=== PATIENT | male | born 1940 | race Caucasian/White ===

== ENCOUNTER 2019-01-29 13:50 | Inpatient (IN) ==
[2019-01-29 16:05] LABS: Basophils # 0.1 10*3/uL (0.0-0.2); Basophils % 0.6 % (0.0-0.8); Eosinophils # 0.3 10*3/uL (0.0-0.87); Eosinophils % 2.7 % (0.00-10.9); Hematocrit 32.1 VOL% (42.0-52.0); Hemoglobin 9.4 GM/DL (14.0-18.0); Immature Granulocytes % 0.5 %; Immature Granulocytes Absolute 0.05 #; Lymphocytes # 0.9 10*3/uL (1.4-4.0); Lymphocytes % 8.8 % (21.2-54.2); Mean Corpuscular HGB Conc 29.3 GM/DL (32-36); Mean Corpuscular Volume 110.3 FL (87-102); Mean Platelet Volume 10.7 FL (9.6-12.0); Monocytes % 10.5 % (1.7-12.7); Neutrophils % 76.9 % (38.7-73.9); Platelet Count 276 T/CUMM (130-400); Red Blood Count 2.91 MC/CUMM (3.8-5.5); Red Cell Distribution Width 15.8 % (9.3-17.3); White Blood Count 10.3 T/CUMM (4-12)
[2019-01-29 16:15] LABS: PT Patient Result 10.8 SECS (9.6-12.2); Partial Thromboplastin Time 26.1 SECS (20.8-36.0)
[2019-01-29 16:34] LABS: Alanine Aminotransferase 25 U/L (16-61); Albumin 3.4 G/DL (3.4-5.0); Alkaline Phosphatase 97 U/L (45-117); Aspartate Amino Transferase 16 U/L (0-37); Bilirubin,Total < 0.39 MG/DL (0.2-1.0); Blood Urea Nitrogen 43 MG/DL (7-18); Calcium 8.7 MG/DL (8.5-10.1); Estimated Glom Filtration Rate 37 ML/MIN; Glucose 103 MG/DL (74-106); Osmolality,Calculated 293.1 MOS/KG (273-304); Total Protein 6.2 G/DL (6.4-8.3)
[2019-01-29] MEDS ORDERED: FUROSEMIDE 100 MG/10 ML VIAL IV STA (17:21)
[2019-01-29 18:49] LABS: Apearance,Urine CLEAR (Clear); Bilirubin,Urine Negative (Negative); Blood, Urine Negative (Negative); Glucose,Urine (UA) Negative (Negative); Ketones,Urine Negative (Negative); Nitrite,Urine Negative (Negative); Protein,Urine Negative; RBC,Urine <1 /HPF (0-4); Urine Color Straw (Yellow); Urine Specific Gravity 1.008 (1.001-1.035); Urine Urobilinogen < 2.0 EU/DL (0.2-1.0); WBC,Urine <1 /HPF (0-6)
[2019-01-29] MEDS ORDERED: NITROGLYCERIN SL 0.4 MG TABLET SL PRN (23:51)
[2019-01-29] MEDS ORDERED: ACETAMINOPHEN 325 MG TABLET PO PRN (23:51)
[2019-01-29] MEDS ORDERED: ONDANSETRON 4 MG/2 ML VIAL IV PRN (23:51)
[2019-01-30] MEDS: METOPROLOL SUCCINATE XL 50 MG TABLET PO SCH ×2 (00:54→21:33)
[2019-01-30 07:05] LABS: Basophils # 0.1 10*3/uL (0.0-0.2); Basophils % 0.6 % (0.0-0.8); Eosinophils # 0.4 10*3/uL (0.0-0.87); Eosinophils % 3.3 % (0.00-10.9); Hematocrit 31.9 VOL% (42.0-52.0); Hemoglobin 9.4 GM/DL (14.0-18.0); Immature Granulocytes % 0.6 %; Immature Granulocytes Absolute 0.06 #; Lymphocytes # 1.1 10*3/uL (1.4-4.0); Lymphocytes % 10.2 % (21.2-54.2); Mean Corpuscular HGB Conc 29.5 GM/DL (32-36); Mean Corpuscular Volume 110.8 FL (87-102); Mean Platelet Volume 10.7 FL (9.6-12.0); Monocytes % 10.8 % (1.7-12.7); Neutrophils % 74.5 % (38.7-73.9); Platelet Count 267 T/CUMM (130-400); Red Blood Count 2.88 MC/CUMM (3.8-5.5); Red Cell Distribution Width 15.9 % (9.3-17.3); White Blood Count 10.9 T/CUMM (4-12)
[2019-01-30 07:32] LABS: Anisocytosis 2+; Calcium 8.8 MG/DL (8.5-10.1); Osmolality,Calculated 293.3 MOS/KG (273-304); Platelet Estimate Normal
[2019-01-30 07:33] LABS: Macrocytosis 1+; Tear Drop Cells Few
[2019-01-30 07:51] LABS: Folate > 24.0 NG/ML (5.4-24.0); Vitamin B12 273 PG/ML (211-911)
[2019-01-30] MEDS ORDERED: FUROSEMIDE 100 MG/10 ML VIAL IV SCH (08:00)
[2019-01-30] MEDS ORDERED: [UNRECOGNIZED DRUG - OTHER] PO SCH (09:00)
[2019-01-30] MEDS: ENOXAPARIN 40 MG/0.4 ML SYRINGE SUBCUT SCH (10:11)
[2019-01-30] MEDS: FERROUS SULFATE 325 MG TABLET PO SCH (10:11)
[2019-01-30] MEDS: CLOPIDOGREL 75 MG TABLET PO SCH (10:12)
[2019-01-30] MEDS: ATORVASTATIN 10 MG TABLET PO SCH (10:12)
[2019-01-30] MEDS: ALLOPURINOL 300 MG TABLET PO SCH (10:12)
[2019-01-30] MEDS: ISOSORBIDE DINITRATE 10 MG TABLET PO SCH ×3 (10:12→21:33)
[2019-01-30] MEDS: ASPIRIN EC 81 MG TABLET PO SCH (10:12)
[2019-01-30] MEDS: FUROSEMIDE 40 MG/4 ML VIAL IV SCH ×2 (10:13→16:27)
[2019-01-30] MEDS: PANTOPRAZOLE 40 MG TABLET PO SCH (16:26)
[2019-01-31 05:58] LABS: Basophils # 0.1 10*3/uL (0.0-0.2); Basophils % 0.6 % (0.0-0.8); Eosinophils # 0.3 10*3/uL (0.0-0.87); Eosinophils % 3.1 % (0.00-10.9); Hematocrit 30.5 VOL% (42.0-52.0); Immature Granulocytes % 0.8 %; Immature Granulocytes Absolute 0.09 #; Lymphocytes # 0.9 10*3/uL (1.4-4.0); Lymphocytes % 8.2 % (21.2-54.2); Mean Corpuscular HGB Conc 29.5 GM/DL (32-36); Mean Corpuscular Volume 109.7 FL (87-102); Mean Platelet Volume 10.4 FL (9.6-12.0); Monocytes % 12.1 % (1.7-12.7); Neutrophils % 75.2 % (38.7-73.9); Platelet Count 248 T/CUMM (130-400); Red Blood Count 2.78 MC/CUMM (3.8-5.5); Red Cell Distribution Width 15.8 % (9.3-17.3); White Blood Count 10.7 T/CUMM (4-12)
[2019-01-31 06:32] LABS: Calcium 8.3 MG/DL (8.5-10.1)
[2019-01-31] MEDS ORDERED: POTASSIUM CHLORIDE 10 MEQ TABLET PO SCH (09:00)
[2019-01-31] MEDS: CYANOCOBALAMIN 1000 MCG/1 ML VIAL IM SCH (09:25)
[2019-01-31] MEDS: ISOSORBIDE DINITRATE 10 MG TABLET PO SCH ×3 (09:25→20:59)
[2019-01-31] MEDS: FUROSEMIDE 40 MG/4 ML VIAL IV SCH ×2 (09:25→16:43)
[2019-01-31] MEDS: ENOXAPARIN 40 MG/0.4 ML SYRINGE SUBCUT SCH (09:26)
[2019-01-31] MEDS: ASPIRIN EC 81 MG TABLET PO SCH (09:26)
[2019-01-31] MEDS: ALLOPURINOL 300 MG TABLET PO SCH (09:26)
[2019-01-31] MEDS: CLOPIDOGREL 75 MG TABLET PO SCH (09:26)
[2019-01-31] MEDS: ATORVASTATIN 10 MG TABLET PO SCH (09:27)
[2019-01-31] MEDS: PANTOPRAZOLE 40 MG TABLET PO SCH (09:27)
[2019-01-31] MEDS: FERROUS SULFATE 325 MG TABLET PO SCH (09:27)
[2019-01-31] MEDS ORDERED: metOLazone 5 MG TABLET PO SCH (11:30)
[2019-01-31] MEDS ORDERED: MAGNESIUM SULF RIDER 4 GM in PREMIX 1 EACH IV PRN (13:58)
[2019-01-31] MEDS ORDERED: MAGNESIUM SULF RIDER 2 GM in PREMIX 1 EACH IV PRN (13:58)
[2019-01-31] MEDS: METOPROLOL SUCCINATE XL 50 MG TABLET PO SCH (20:59)
[2019-01-31] MEDS: ZALEPLON 5 MG CAPSULE PO PRN (21:42)
[2019-02-01] MEDS: ASPIRIN EC 81 MG TABLET PO SCH (10:33)
[2019-02-01] MEDS: CLOPIDOGREL 75 MG TABLET PO SCH (10:34)
[2019-02-01] MEDS: ALLOPURINOL 300 MG TABLET PO SCH (10:34)
[2019-02-01] MEDS: ATORVASTATIN 10 MG TABLET PO SCH (10:34)
[2019-02-01] MEDS: ISOSORBIDE DINITRATE 10 MG TABLET PO SCH ×3 (10:34→21:11)
[2019-02-01] MEDS: PANTOPRAZOLE 40 MG TABLET PO SCH (10:34)
[2019-02-01] MEDS: FERROUS SULFATE 325 MG TABLET PO SCH (10:35)
[2019-02-01] MEDS: CYANOCOBALAMIN 1000 MCG/1 ML VIAL IM SCH (10:35)
[2019-02-01] MEDS: ENOXAPARIN 40 MG/0.4 ML SYRINGE SUBCUT SCH (10:36)
[2019-02-01] MEDS: FUROSEMIDE 40 MG/4 ML VIAL IV SCH (10:58)
[2019-02-01] MEDS ORDERED: FUROSEMIDE 40 MG/4 ML VIAL IV SCH (16:00)
[2019-02-01] MEDS ORDERED: FUROSEMIDE 80 MG TABLET PO SCH (16:00)
[2019-02-01] MEDS: ZALEPLON 5 MG CAPSULE PO PRN (21:11)
[2019-02-01] MEDS: METOPROLOL SUCCINATE XL 50 MG TABLET PO SCH (21:11)
[2019-02-02 05:32] LABS: Calcium 9.1 MG/DL (8.5-10.1); Osmolality,Calculated 290.7 MOS/KG (273-304)
[2019-02-02] MEDS ORDERED: metOLazone 5 MG TABLET PO ONE (07:12)
[2019-02-02] MEDS: POTASSIUM CHLORIDE 20 MEQ TABLET PO SCH (09:13)
[2019-02-02] MEDS: FERROUS SULFATE 325 MG TABLET PO SCH (09:13)
[2019-02-02] MEDS: ALLOPURINOL 300 MG TABLET PO SCH (09:13)
[2019-02-02] MEDS: ISOSORBIDE DINITRATE 10 MG TABLET PO SCH ×3 (09:13→21:34)
[2019-02-02] MEDS: ASPIRIN EC 81 MG TABLET PO SCH (09:13)
[2019-02-02] MEDS: ATORVASTATIN 10 MG TABLET PO SCH (09:14)
[2019-02-02] MEDS: CLOPIDOGREL 75 MG TABLET PO SCH (09:14)
[2019-02-02] MEDS: PANTOPRAZOLE 40 MG TABLET PO SCH (09:14)
[2019-02-02] MEDS: ENOXAPARIN 40 MG/0.4 ML SYRINGE SUBCUT SCH (09:14)
[2019-02-02] MEDS: FUROSEMIDE 40 MG/4 ML VIAL IV SCH ×2 (09:14→16:44)
[2019-02-02] MEDS: CYANOCOBALAMIN 1000 MCG/1 ML VIAL IM SCH (09:15)
[2019-02-02] MEDS: METOPROLOL SUCCINATE XL 50 MG TABLET PO SCH (21:34)
[2019-02-02] MEDS: ZALEPLON 5 MG CAPSULE PO PRN (21:34)
[2019-02-03 06:17] LABS: Calcium 8.8 MG/DL (8.5-10.1)
[2019-02-03] MEDS ORDERED: metOLazone 5 MG TABLET PO SCH (08:30)
[2019-02-03] MEDS: FUROSEMIDE 40 MG/4 ML VIAL IV SCH ×2 (09:43→16:14)
[2019-02-03] MEDS: ASPIRIN EC 81 MG TABLET PO SCH (09:45)
[2019-02-03] MEDS: ALLOPURINOL 300 MG TABLET PO SCH (09:45)
[2019-02-03] MEDS: ISOSORBIDE DINITRATE 10 MG TABLET PO SCH ×3 (09:45→21:43)
[2019-02-03] MEDS: POTASSIUM CHLORIDE 20 MEQ TABLET PO SCH (09:46)
[2019-02-03] MEDS: PANTOPRAZOLE 40 MG TABLET PO SCH (09:46)
[2019-02-03] MEDS: FERROUS SULFATE 325 MG TABLET PO SCH (09:46)
[2019-02-03] MEDS: ATORVASTATIN 10 MG TABLET PO SCH (09:46)
[2019-02-03] MEDS: CLOPIDOGREL 75 MG TABLET PO SCH (09:46)
[2019-02-03] MEDS: ENOXAPARIN 40 MG/0.4 ML SYRINGE SUBCUT SCH (09:47)
[2019-02-03] MEDS: CYANOCOBALAMIN 1000 MCG/1 ML VIAL IM SCH (09:49)
[2019-02-03] MEDS: METOPROLOL SUCCINATE XL 50 MG TABLET PO SCH (21:43)
[2019-02-03] MEDS: ZALEPLON 5 MG CAPSULE PO PRN (22:39)
[2019-02-04 06:06] LABS: Basophils # 0.1 10*3/uL (0.0-0.2); Basophils % 0.6 % (0.0-0.8); Eosinophils # 0.4 10*3/uL (0.0-0.87); Eosinophils % 3.8 % (0.00-10.9); Hemoglobin 9.4 GM/DL (14.0-18.0); Immature Granulocytes % 0.5 %; Immature Granulocytes Absolute 0.06 #; Lymphocytes # 1.1 10*3/uL (1.4-4.0); Lymphocytes % 9.8 % (21.2-54.2); Mean Corpuscular HGB Conc 30.3 GM/DL (32-36); Mean Corpuscular Volume 106.5 FL (87-102); Mean Platelet Volume 10.9 FL (9.6-12.0); Monocytes % 11.6 % (1.7-12.7); Neutrophils % 73.7 % (38.7-73.9); Platelet Count 271 T/CUMM (130-400); Red Blood Count 2.91 MC/CUMM (3.8-5.5); Red Cell Distribution Width 15.6 % (9.3-17.3); White Blood Count 10.9 T/CUMM (4-12)
[2019-02-04 06:53] LABS: Calcium 8.9 MG/DL (8.5-10.1); Osmolality,Calculated 290.1 MOS/KG (273-304)
[2019-02-04] MEDS: ASPIRIN EC 81 MG TABLET PO SCH (09:07)
[2019-02-04] MEDS: ALLOPURINOL 300 MG TABLET PO SCH (09:07)
[2019-02-04] MEDS: FERROUS SULFATE 325 MG TABLET PO SCH (09:07)
[2019-02-04] MEDS: ATORVASTATIN 10 MG TABLET PO SCH (09:08)
[2019-02-04] MEDS: PANTOPRAZOLE 40 MG TABLET PO SCH (09:08)
[2019-02-04] MEDS: ISOSORBIDE DINITRATE 10 MG TABLET PO SCH (09:08)
[2019-02-04] MEDS: POTASSIUM CHLORIDE 20 MEQ TABLET PO SCH ×3 (09:08→11:43)
[2019-02-04] MEDS: CLOPIDOGREL 75 MG TABLET PO SCH (09:08)
[2019-02-04] MEDS: FUROSEMIDE 40 MG/4 ML VIAL IV SCH (09:09)
[2019-02-04] MEDS: ENOXAPARIN 40 MG/0.4 ML SYRINGE SUBCUT SCH (09:10)
[2019-02-04] MEDS: CYANOCOBALAMIN 1000 MCG/1 ML VIAL IM SCH (09:15)
[2019-02-04 11:24] VITALS: BP 113/64
== END 2019-02-04 13:08 | disposition home health service (06) | DRG 291 ==
LOC: N.ED 13:50 → SUATTDRO 21:14 → N.EDINP 21:14 → N.5E 21:25
PROVIDERS: ADMIT Internal Medicine; ATTEND Internal Medicine Geriatric Medicine

== ENCOUNTER 2019-02-07 12:55 | Inpatient (IN) ==
[2019-02-07 13:56] LABS: Basophils # 0.1 10*3/uL (0.0-0.2); Basophils % 0.5 % (0.0-0.8); Eosinophils # 0.3 10*3/uL (0.0-0.87); Eosinophils % 2.2 % (0.00-10.9); Immature Granulocytes % 0.6 %; Immature Granulocytes Absolute 0.08 #; Lymphocytes # 0.8 10*3/uL (1.4-4.0); Lymphocytes % 6.5 % (21.2-54.2); Mean Corpuscular Volume 109.2 FL (87-102); Mean Platelet Volume 10.4 FL (9.6-12.0); Monocytes % 10.5 % (1.7-12.7); Neutrophils % 79.7 % (38.7-73.9); Platelet Count 261 T/CUMM (130-400); Red Blood Count 2.84 MC/CUMM (3.8-5.5); Red Cell Distribution Width 15.5 % (9.3-17.3); White Blood Count 12.9 T/CUMM (4-12)
[2019-02-07 14:22] LABS: Bilirubin,Total 0.4 MG/DL (0.2-1.0); Calcium 8.4 MG/DL (8.5-10.1); Osmolality,Calculated 293.8 MOS/KG (273-304); Total Protein 6.5 G/DL (6.4-8.3)
[2019-02-07] MEDS ORDERED: FUROSEMIDE 100 MG/10 ML VIAL IV STA (15:08)
[2019-02-07] MEDS ORDERED: MAGNESIUM SULF RIDER 2 GM in PREMIX 1 EACH IV PRN (15:47)
[2019-02-07] MEDS ORDERED: ACETAMINOPHEN 325 MG TABLET PO PRN (15:47)
[2019-02-07] MEDS ORDERED: MAGNESIUM SULF RIDER 4 GM in PREMIX 1 EACH IV PRN (15:47)
[2019-02-07] MEDS ORDERED: ONDANSETRON 4 MG/2 ML VIAL IV PRN (15:47)
[2019-02-07] MEDS ORDERED: ENOXAPARIN 30 MG/0.3 ML SYRINGE SUBCUT SCH (16:00)
[2019-02-07] MEDS ORDERED: BISACODYL 5 MG TABLET PO STA (16:06)
[2019-02-07 17:09] LABS: Apearance,Urine CLEAR (Clear); Bilirubin,Urine Negative (Negative); Blood, Urine Negative (Negative); Glucose,Urine (UA) Negative (Negative); Ketones,Urine Negative (Negative); Mucus,Urine Occasional /LPF (Occasional); Nitrite,Urine Negative (Negative); Protein,Urine Negative; RBC,Urine <1 /HPF (0-4); Sperm,Urine Occasional /HPF (Negative); Urine Color Yellow (Yellow); Urine Urobilinogen < 2.0 EU/DL (0.2-1.0); WBC,Urine <1 /HPF (0-6)
[2019-02-07] MEDS: SPIRONOLACTONE 25 MG TABLET PO SCH (18:00)
[2019-02-07] MEDS: ASPIRIN CHEW 81 MG TABLET PO SCH (18:00)
[2019-02-07] MEDS: metOLazone 2.5 MG TABLET PO SCH (18:00)
[2019-02-07] MEDS: FUROSEMIDE 40 MG/4 ML VIAL IV SCH (18:01)
[2019-02-07] MEDS: PANTOPRAZOLE 40 MG TABLET PO SCH (18:01)
[2019-02-07] MEDS: METOPROLOL SUCCINATE XL 50 MG TABLET PO SCH (20:19)
[2019-02-08] MEDS ORDERED: DEXAMETHASONE 4 MG/1 ML VIAL IM ONE (01:26)
[2019-02-08 05:28] LABS: Calcium 8.3 MG/DL (8.5-10.1); Osmolality,Calculated 294.8 MOS/KG (273-304)
[2019-02-08 05:36] LABS: Basophils # 0.1 10*3/uL (0.0-0.2); Basophils % 0.5 % (0.0-0.8); Eosinophils # 0.2 10*3/uL (0.0-0.87); Eosinophils % 1.1 % (0.00-10.9); Hematocrit 31.7 VOL% (42.0-52.0); Hemoglobin 9.4 GM/DL (14.0-18.0); Immature Granulocytes % 0.8 %; Immature Granulocytes Absolute 0.11 #; Lymphocytes # 0.6 10*3/uL (1.4-4.0); Lymphocytes % 4.7 % (21.2-54.2); Mean Corpuscular HGB Conc 29.7 GM/DL (32-36); Mean Corpuscular Volume 108.2 FL (87-102); Mean Platelet Volume 10.8 FL (9.6-12.0); Neutrophils % 87.9 % (38.7-73.9); Platelet Count 299 T/CUMM (130-400); Red Blood Count 2.93 MC/CUMM (3.8-5.5); Red Cell Distribution Width 15.6 % (9.3-17.3); White Blood Count 13.8 T/CUMM (4-12)
[2019-02-08 06:09] LABS: Band Neutrophils 2 % (0-10); Eosinophils 2 % (0-10); Hypochromasia 1+; Lymphocytes 5 % (20-55); Macrocytosis 1+; Segmented Neutrophils 90 % (50-85); Total Cells Counted 100
[2019-02-08 06:10] LABS: Ovalocytes Slight
[2019-02-08] MEDS: metOLazone 2.5 MG TABLET PO SCH (08:59)
[2019-02-08] MEDS: ATORVASTATIN 10 MG TABLET PO SCH (08:59)
[2019-02-08] MEDS: ASPIRIN CHEW 81 MG TABLET PO SCH (08:59)
[2019-02-08] MEDS: CLOPIDOGREL 75 MG TABLET PO SCH (08:59)
[2019-02-08] MEDS: SPIRONOLACTONE 25 MG TABLET PO SCH (08:59)
[2019-02-08] MEDS: FUROSEMIDE 40 MG/4 ML VIAL IV SCH ×2 (09:00→15:10)
[2019-02-08] MEDS ORDERED: NON-FORMULARY MEDICATION (Omeprazole 40 MG) PO SCH (09:00)
[2019-02-08] MEDS: PANTOPRAZOLE 40 MG TABLET PO SCH (09:00)
[2019-02-08] MEDS: CEFEPIME 1,000 MG in SODIUM CHLORIDE 0.9% 100 ML IV SCH ×2 (09:32→20:02)
[2019-02-08] MEDS: FEBUXOSTAT 80 MG TABLET PO SCH (12:55)
[2019-02-08] MEDS: METOPROLOL SUCCINATE XL 50 MG TABLET PO SCH (20:02)
[2019-02-09 06:08] LABS: Basophils % 0.1 % (0.0-0.8); Hematocrit 30.4 VOL% (42.0-52.0); Hemoglobin 9.1 GM/DL (14.0-18.0); Immature Granulocytes % 0.8 %; Immature Granulocytes Absolute 0.11 #; Lymphocytes # 0.9 10*3/uL (1.4-4.0); Lymphocytes % 6.5 % (21.2-54.2); Mean Corpuscular HGB Conc 29.9 GM/DL (32-36); Mean Corpuscular Volume 106.7 FL (87-102); Mean Platelet Volume 11.1 FL (9.6-12.0); Monocytes % 9.7 % (1.7-12.7); Neutrophils % 82.9 % (38.7-73.9); Platelet Count 324 T/CUMM (130-400); Red Blood Count 2.85 MC/CUMM (3.8-5.5); Red Cell Distribution Width 14.9 % (9.3-17.3); White Blood Count 14.3 T/CUMM (4-12)
[2019-02-09 06:21] LABS: Calcium 8.4 MG/DL (8.5-10.1); Osmolality,Calculated 289.7 MOS/KG (273-304)
[2019-02-09] MEDS: FUROSEMIDE 40 MG/4 ML VIAL IV SCH ×2 (09:12→15:38)
[2019-02-09] MEDS: HEPARIN 5,000 UNIT/1 ML VIAL SUBCUT SCH ×2 (09:17→20:33)
[2019-02-09] MEDS: PANTOPRAZOLE 40 MG TABLET PO SCH (09:18)
[2019-02-09] MEDS: BISACODYL 5 MG TABLET PO SCH (09:18)
[2019-02-09] MEDS: ATORVASTATIN 10 MG TABLET PO SCH (09:18)
[2019-02-09] MEDS: FEBUXOSTAT 80 MG TABLET PO SCH (09:18)
[2019-02-09] MEDS: CLOPIDOGREL 75 MG TABLET PO SCH (09:18)
[2019-02-09] MEDS: ASPIRIN CHEW 81 MG TABLET PO SCH (09:18)
[2019-02-09] MEDS: POLYETHYLENE GLYCOL POWDER 17 GM PACK PO SCH (09:19)
[2019-02-09] MEDS: CEFEPIME 1,000 MG in SODIUM CHLORIDE 0.9% 100 ML IV SCH ×2 (09:19→20:51)
[2019-02-09] MEDS: ALBUTEROL/IPRATROPIUM 3 ML NEB RESP TX SCH ×2 (13:07→20:17)
[2019-02-09] MEDS: METOPROLOL SUCCINATE XL 25 MG TABLET PO SCH (20:32)
[2019-02-10] MEDS: ALBUTEROL/IPRATROPIUM 3 ML NEB RESP TX SCH ×4 (00:53→20:17)
[2019-02-10 05:30] LABS: Basophils % 0.1 % (0.0-0.8); Eosinophils # 0.1 10*3/uL (0.0-0.87); Eosinophils % 0.7 % (0.00-10.9); Hematocrit 28.6 VOL% (42.0-52.0); Hemoglobin 8.7 GM/DL (14.0-18.0); Immature Granulocytes % 1.1 %; Immature Granulocytes Absolute 0.17 #; Lymphocytes # 1.1 10*3/uL (1.4-4.0); Lymphocytes % 6.9 % (21.2-54.2); Mean Corpuscular HGB Conc 30.4 GM/DL (32-36); Mean Corpuscular Volume 104.4 FL (87-102); NRBC # 0.03 10*3/uL; Neutrophils % 80.2 % (38.7-73.9); Platelet Count 334 T/CUMM (130-400); Red Blood Count 2.74 MC/CUMM (3.8-5.5); White Blood Count 15.4 T/CUMM (4-12)
[2019-02-10 05:43] LABS: Calcium 8.2 MG/DL (8.5-10.1); Osmolality,Calculated 291.8 MOS/KG (273-304)
[2019-02-10] MEDS: ASPIRIN CHEW 81 MG TABLET PO SCH (09:05)
[2019-02-10] MEDS: CLOPIDOGREL 75 MG TABLET PO SCH (09:06)
[2019-02-10] MEDS: BISACODYL 5 MG TABLET PO SCH (09:06)
[2019-02-10] MEDS: POLYETHYLENE GLYCOL POWDER 17 GM PACK PO SCH (09:06)
[2019-02-10] MEDS: ATORVASTATIN 10 MG TABLET PO SCH (09:06)
[2019-02-10] MEDS: HEPARIN 5,000 UNIT/1 ML VIAL SUBCUT SCH ×2 (09:06→22:02)
[2019-02-10] MEDS: FEBUXOSTAT 80 MG TABLET PO SCH (09:06)
[2019-02-10] MEDS: CEFEPIME 1,000 MG in SODIUM CHLORIDE 0.9% 100 ML IV SCH ×2 (09:06→22:05)
[2019-02-10] MEDS: PANTOPRAZOLE 40 MG TABLET PO SCH (09:06)
[2019-02-10] MEDS: FUROSEMIDE 40 MG/4 ML VIAL IV SCH ×2 (09:06→17:00)
[2019-02-10] MEDS: METOPROLOL SUCCINATE XL 25 MG TABLET PO SCH (22:03)
[2019-02-11] MEDS: ALBUTEROL/IPRATROPIUM 3 ML NEB RESP TX SCH ×4 (01:01→20:00)
[2019-02-11] MEDS: BISACODYL 5 MG TABLET PO SCH (09:01)
[2019-02-11] MEDS: ASPIRIN CHEW 81 MG TABLET PO SCH (09:01)
[2019-02-11] MEDS: FEBUXOSTAT 80 MG TABLET PO SCH (09:01)
[2019-02-11] MEDS: ATORVASTATIN 10 MG TABLET PO SCH (09:01)
[2019-02-11] MEDS: PANTOPRAZOLE 40 MG TABLET PO SCH (09:01)
[2019-02-11] MEDS: CLOPIDOGREL 75 MG TABLET PO SCH (09:01)
[2019-02-11] MEDS: FUROSEMIDE 40 MG/4 ML VIAL IV SCH ×2 (09:02→17:34)
[2019-02-11] MEDS: POLYETHYLENE GLYCOL POWDER 17 GM PACK PO SCH (09:02)
[2019-02-11] MEDS: HEPARIN 5,000 UNIT/1 ML VIAL SUBCUT SCH ×2 (09:04→22:03)
[2019-02-11] MEDS: cefTRIAXone 1,000 MG in SYRINGE 1 EACH IV SCH (09:05)
[2019-02-11] MEDS ORDERED: METHOCARBAMOL 500 MG TABLET PO PRN (12:46)
[2019-02-11] MEDS: METOPROLOL SUCCINATE XL 25 MG TABLET PO SCH (22:03)
[2019-02-12] MEDS: ALBUTEROL/IPRATROPIUM 3 ML NEB RESP TX SCH ×4 (00:17→19:50)
[2019-02-12 06:04] LABS: Basophils % 0.3 % (0.0-0.8); Eosinophils # 0.4 10*3/uL (0.0-0.87); Eosinophils % 2.9 % (0.00-10.9); Hemoglobin 8.4 GM/DL (14.0-18.0); Immature Granulocytes % 1.6 %; Immature Granulocytes Absolute 0.22 #; Lymphocytes # 0.7 10*3/uL (1.4-4.0); Lymphocytes % 4.7 % (21.2-54.2); Mean Corpuscular Volume 103.7 FL (87-102); Mean Platelet Volume 10.5 FL (9.6-12.0); Monocytes % 10.5 % (1.7-12.7); NRBC # 0.04 10*3/uL; Platelet Count 339 T/CUMM (130-400); Red Cell Distribution Width 14.8 % (9.3-17.3)
[2019-02-12 06:16] LABS: Calcium 8.3 MG/DL (8.5-10.1); Osmolality,Calculated 295.8 MOS/KG (273-304)
[2019-02-12 06:26] LABS: Hypochromasia 1+; Lymphocytes 7 % (20-55); Nucleated Red Blood Cells 1 (0-5); Ovalocytes Slight; Platelet Estimate Adequate; Segmented Neutrophils 82 % (50-85); Total Cells Counted 100
[2019-02-12] MEDS: POLYETHYLENE GLYCOL POWDER 17 GM PACK PO SCH (09:36)
[2019-02-12] MEDS: FEBUXOSTAT 80 MG TABLET PO SCH (09:37)
[2019-02-12] MEDS: FUROSEMIDE 40 MG/4 ML VIAL IV SCH ×2 (09:37→15:35)
[2019-02-12] MEDS: HEPARIN 5,000 UNIT/1 ML VIAL SUBCUT SCH ×2 (09:37→20:38)
[2019-02-12] MEDS: cefTRIAXone 1,000 MG in SYRINGE 1 EACH IV SCH (09:37)
[2019-02-12] MEDS: BISACODYL 5 MG TABLET PO SCH (09:38)
[2019-02-12] MEDS: ATORVASTATIN 10 MG TABLET PO SCH (09:38)
[2019-02-12] MEDS: PANTOPRAZOLE 40 MG TABLET PO SCH (09:38)
[2019-02-12] MEDS: CLOPIDOGREL 75 MG TABLET PO SCH (09:38)
[2019-02-12] MEDS: ASPIRIN CHEW 81 MG TABLET PO SCH (09:38)
[2019-02-12] MEDS: SPIRONOLACTONE 25 MG TABLET PO SCH (23:27)
[2019-02-12] MEDS: METOPROLOL SUCCINATE XL 25 MG TABLET PO SCH (23:28)
[2019-02-13] MEDS: ALBUTEROL/IPRATROPIUM 3 ML NEB RESP TX SCH ×2 (00:37→07:02)
[2019-02-13 05:04] LABS: Calcium 8.6 MG/DL (8.5-10.1); Osmolality,Calculated 286.9 MOS/KG (273-304)
[2019-02-13] MEDS ORDERED: POTASSIUM CHLORIDE 20 MEQ TABLET PO ONE (08:46)
[2019-02-13] MEDS: PANTOPRAZOLE 40 MG TABLET PO SCH (09:05)
[2019-02-13] MEDS: ATORVASTATIN 10 MG TABLET PO SCH (09:05)
[2019-02-13] MEDS: BISACODYL 5 MG TABLET PO SCH (09:05)
[2019-02-13] MEDS: HEPARIN 5,000 UNIT/1 ML VIAL SUBCUT SCH (09:06)
[2019-02-13] MEDS: FUROSEMIDE 40 MG/4 ML VIAL IV SCH (09:06)
[2019-02-13] MEDS: SPIRONOLACTONE 25 MG TABLET PO SCH (09:06)
[2019-02-13] MEDS: ASPIRIN CHEW 81 MG TABLET PO SCH (09:06)
[2019-02-13] MEDS: CLOPIDOGREL 75 MG TABLET PO SCH (09:06)
[2019-02-13] MEDS: POLYETHYLENE GLYCOL POWDER 17 GM PACK PO SCH (09:10)
[2019-02-13] MEDS: cefTRIAXone 1,000 MG in SYRINGE 1 EACH IV SCH (09:10)
[2019-02-13] MEDS: FEBUXOSTAT 80 MG TABLET PO SCH (09:12)
[2019-02-13 12:00] VITALS: BP 108/56
== END 2019-02-13 13:57 | disposition home health service (06) | DRG 291 ==
LOC: N.ED 12:55 → N.EDINP 15:43 → SUATTDRO 15:43 → INTOOBSV 15:43 → OBSVTOIN 15:43 → N.2E 16:29
PROVIDERS: ADMIT Internal Medicine; ATTEND Emergency Medicine

== ENCOUNTER 2019-02-18 14:48 | Inpatient (IN) ==
[2019-02-18 16:02] LABS: INR 1.1; PT Patient Result 11.5 SECS (9.6-12.2); Partial Thromboplastin Time 25.9 SECS (20.8-36.0)
[2019-02-18 16:10] LABS: Albumin 2.9 G/DL (3.4-5.0); Bilirubin,Total 0.4 MG/DL (0.2-1.0); Calcium 8.4 MG/DL (8.5-10.1); Total Protein 6.3 G/DL (6.4-8.3)
[2019-02-18 16:16] LABS: Basophils # 0.1 10*3/uL (0.0-0.2); Basophils % 0.4 % (0.0-0.8); Eosinophils # 0.4 10*3/uL (0.0-0.87); Eosinophils % 2.7 % (0.00-10.9); Hematocrit 29.5 VOL% (42.0-52.0); Hemoglobin 8.3 GM/DL (14.0-18.0); Immature Granulocytes % 0.7 %; Immature Granulocytes Absolute 0.12 #; Lymphocytes % 6.3 % (21.2-54.2); Mean Corpuscular HGB Conc 28.1 GM/DL (32-36); Mean Platelet Volume 10.4 FL (9.6-12.0); Monocytes % 9.8 % (1.7-12.7); Neutrophils % 80.1 % (38.7-73.9); Platelet Count 370 T/CUMM (130-400); Red Blood Count 2.81 MC/CUMM (3.8-5.5); Red Cell Distribution Width 15.5 % (9.3-17.3); White Blood Count 16.2 T/CUMM (4-12)
[2019-02-18] MEDS ORDERED: BISACODYL 5 MG TABLET PO PRN (17:40)
[2019-02-18] MEDS ORDERED: ACETAMINOPHEN 325 MG TABLET PO PRN (17:40)
[2019-02-18] MEDS ORDERED: ONDANSETRON 4 MG/2 ML VIAL IV PRN (17:40)
[2019-02-18] MEDS ORDERED: guaiFENesin/DM ER 600-30 MG TABLET PO PRN (17:40)
[2019-02-18] MEDS ORDERED: LACTULOSE 20 GM/30 ML UDCUP PO PRN (17:40)
[2019-02-18] MEDS ORDERED: ZALEPLON 5 MG CAPSULE PO PRN (17:40)
[2019-02-18] MEDS ORDERED: DOCUSATE SODIUM 100 MG CAPSULE PO PRN (17:45)
[2019-02-18] MEDS: AZITHROMYCIN INJ 500 MG in SODIUM CHLORIDE 0.9% 250 ML IV SCH (21:48)
[2019-02-18] MEDS: SPIRONOLACTONE 25 MG TABLET PO SCH (21:50)
[2019-02-18] MEDS: DOCUSATE SODIUM 100 MG CAPSULE PO SCH (21:51)
[2019-02-18] MEDS: ISOSORBIDE DINITRATE 10 MG TABLET PO SCH (21:51)
[2019-02-18] MEDS: METOPROLOL SUCCINATE XL 50 MG TABLET PO SCH (21:52)
[2019-02-18 21:53] LABS: Troponin I 0.046 NG/ML (0.00-0.045)
[2019-02-18] MEDS: HEPARIN 5,000 UNIT/1 ML VIAL SUBCUT SCH (22:39)
[2019-02-19 04:54] LABS: Basophils # 0.1 10*3/uL (0.0-0.2); Basophils % 0.4 % (0.0-0.8); Eosinophils # 0.3 10*3/uL (0.0-0.87); Eosinophils % 2.2 % (0.00-10.9); Hemoglobin 7.8 GM/DL (14.0-18.0); Immature Granulocytes % 0.8 %; Lymphocytes # 0.8 10*3/uL (1.4-4.0); Lymphocytes % 6.5 % (21.2-54.2); Mean Corpuscular HGB Conc 27.3 GM/DL (32-36); Mean Corpuscular Volume 107.9 FL (87-102); Mean Platelet Volume 10.2 FL (9.6-12.0); Monocytes % 7.5 % (1.7-12.7); Neutrophils % 82.6 % (38.7-73.9); Platelet Count 318 T/CUMM (130-400); Red Blood Count 2.65 MC/CUMM (3.8-5.5); Red Cell Distribution Width 15.7 % (9.3-17.3); White Blood Count 12.7 T/CUMM (4-12)
[2019-02-19 05:23] LABS: Hematocrit 27.8 VOL% (42.0-52.0)
[2019-02-19 05:24] LABS: Albumin 2.7 G/DL (3.4-5.0); Bilirubin,Total 1.1 MG/DL (0.2-1.0); Calcium 8.1 MG/DL (8.5-10.1); Osmolality,Calculated 304.5 MOS/KG (273-304); Total Protein 5.7 G/DL (6.4-8.3)
[2019-02-19 05:26] LABS: Anisocytosis Slight
[2019-02-19 05:27] LABS: Macrocytosis 1+; Polychromasia Few; Target Cells Slight
[2019-02-19 05:28] LABS: Platelet Estimate Normal; Stomatocytes Slight
[2019-02-19 05:50] LABS: Troponin I 0.034 NG/ML (0.00-0.045)
[2019-02-19] MEDS: HEPARIN 5,000 UNIT/1 ML VIAL SUBCUT SCH ×3 (06:51→23:24)
[2019-02-19] MEDS ORDERED: SODIUM CHLORIDE 0.9% 1,000 ML IV PRN (06:57)
[2019-02-19] MEDS ORDERED: FUROSEMIDE 20 MG/2 ML VIAL IV SCH (07:00)
[2019-02-19] MEDS ORDERED: FUROSEMIDE 40 MG/4 ML VIAL IV SCH (08:00)
[2019-02-19] MEDS: SPIRONOLACTONE 25 MG TABLET PO SCH ×2 (09:16→21:17)
[2019-02-19] MEDS: ISOSORBIDE DINITRATE 10 MG TABLET PO SCH ×3 (09:16→21:18)
[2019-02-19] MEDS: FEBUXOSTAT 80 MG TABLET PO SCH (09:18)
[2019-02-19] MEDS: ATORVASTATIN 10 MG TABLET PO SCH (09:18)
[2019-02-19] MEDS: ASPIRIN EC 81 MG TABLET PO SCH (09:18)
[2019-02-19] MEDS: ALLOPURINOL 300 MG TABLET PO SCH (09:18)
[2019-02-19] MEDS: DOCUSATE SODIUM 100 MG CAPSULE PO SCH ×2 (09:19→21:18)
[2019-02-19] MEDS: CLOPIDOGREL 75 MG TABLET PO SCH (09:19)
[2019-02-19] MEDS: PANTOPRAZOLE 40 MG TABLET PO SCH (09:19)
[2019-02-19] MEDS: FERROUS SULFATE 325 MG TABLET PO SCH (09:19)
[2019-02-19] MEDS: cefTRIAXone 1,000 MG in SYRINGE 1 EACH IV SCH ×2 (09:23→18:01)
[2019-02-19 11:06] LABS: % Iron Saturation 18.8 % (18-50)
[2019-02-19 11:12] LABS: Folate 23.4 NG/ML (5.4-24.0)
[2019-02-19] MEDS: ALBUTEROL 0.63 MG/3 ML NEB RESP TX SCH ×3 (15:36→23:55)
[2019-02-19 16:31] LABS: Apearance,Urine CLEAR (Clear); Bacteria,Urine Occasional /HPF (Few); Bilirubin,Urine Negative (Negative); Blood, Urine Negative (Negative); Glucose,Urine (UA) Negative (Negative); Ketones,Urine Negative (Negative); Mucus,Urine Occasional /LPF (Occasional); Nitrite,Urine Negative (Negative); Protein,Urine Negative; Squamous Epithelial Cell,Urine Occasional /HPF (0-10); Urine Color Yellow (Yellow); Urine Specific Gravity 1.012 (1.001-1.035); Urine Urobilinogen < 2.0 EU/DL (0.2-1.0); WBC,Urine 1 /HPF (0-6)
[2019-02-19] MEDS: FUROSEMIDE 40 MG/4 ML VIAL IV SCH (18:01)
[2019-02-19] MEDS: METOPROLOL SUCCINATE XL 50 MG TABLET PO SCH (21:17)
[2019-02-19] MEDS: AZITHROMYCIN INJ 500 MG in SODIUM CHLORIDE 0.9% 250 ML IV SCH (21:18)
[2019-02-19 23:21] LABS: Apearance,Urine CLEAR (Clear); Bilirubin,Urine Negative (Negative); Blood, Urine Negative (Negative); Glucose,Urine (UA) Negative (Negative); Ketones,Urine Negative (Negative); Mucus,Urine Occasional /LPF (Occasional); Nitrite,Urine Negative (Negative); Protein,Urine Negative; RBC,Urine 1 /HPF (0-4); Urine Color Straw (Yellow); Urine Urobilinogen < 2.0 EU/DL (0.2-1.0); WBC,Urine 1 /HPF (0-6)
[2019-02-20] MEDS: FUROSEMIDE 20 MG/2 ML VIAL IV SCH ×2 (03:05→05:51)
[2019-02-20] MEDS: ALBUTEROL 0.63 MG/3 ML NEB RESP TX SCH ×5 (03:35→20:22)
[2019-02-20] MEDS: HEPARIN 5,000 UNIT/1 ML VIAL SUBCUT SCH ×3 (05:51→21:42)
[2019-02-20 06:36] LABS: Basophils # 0.1 10*3/uL (0.0-0.2); Basophils % 0.4 % (0.0-0.8); Eosinophils # 0.3 10*3/uL (0.0-0.87); Eosinophils % 2.3 % (0.00-10.9); Hematocrit 31.7 VOL% (42.0-52.0); Hemoglobin 9.3 GM/DL (14.0-18.0); Immature Granulocytes % 0.6 %; Immature Granulocytes Absolute 0.08 #; Lymphocytes % 7.2 % (21.2-54.2); Mean Corpuscular HGB Conc 29.3 GM/DL (32-36); Mean Platelet Volume 10.2 FL (9.6-12.0); Monocytes % 10.3 % (1.7-12.7); Neutrophils % 79.2 % (38.7-73.9); Platelet Count 290 T/CUMM (130-400); Red Blood Count 3.14 MC/CUMM (3.8-5.5); Red Cell Distribution Width 18.5 % (9.3-17.3); White Blood Count 13.4 T/CUMM (4-12)
[2019-02-20 07:12] LABS: Albumin 2.7 G/DL (3.4-5.0); Bilirubin,Total 1.6 MG/DL (0.2-1.0); Calcium 8.7 MG/DL (8.5-10.1); Osmolality,Calculated 296.7 MOS/KG (273-304)
[2019-02-20 07:29] LABS: Risk Ratio 3.67
[2019-02-20] MEDS ORDERED: POTASSIUM CHLORIDE 10 MEQ TABLET PO SCH (09:00)
[2019-02-20] MEDS: CLOPIDOGREL 75 MG TABLET PO SCH (09:30)
[2019-02-20] MEDS: FEBUXOSTAT 80 MG TABLET PO SCH (09:30)
[2019-02-20] MEDS: ALLOPURINOL 300 MG TABLET PO SCH (09:30)
[2019-02-20] MEDS: ATORVASTATIN 10 MG TABLET PO SCH (09:30)
[2019-02-20] MEDS: ASPIRIN EC 81 MG TABLET PO SCH (09:30)
[2019-02-20] MEDS: ISOSORBIDE DINITRATE 10 MG TABLET PO SCH ×3 (09:31→21:41)
[2019-02-20] MEDS: DOCUSATE SODIUM 100 MG CAPSULE PO SCH ×2 (09:31→21:41)
[2019-02-20] MEDS: PANTOPRAZOLE 40 MG TABLET PO SCH (09:31)
[2019-02-20] MEDS: FUROSEMIDE 40 MG/4 ML VIAL IV SCH ×2 (09:31→15:59)
[2019-02-20] MEDS: FERROUS SULFATE 325 MG TABLET PO SCH (09:31)
[2019-02-20] MEDS: SPIRONOLACTONE 25 MG TABLET PO SCH ×2 (09:31→21:41)
[2019-02-20] MEDS: cefTRIAXone 1,000 MG in SYRINGE 1 EACH IV SCH (17:54)
[2019-02-20] MEDS: AZITHROMYCIN INJ 500 MG in SODIUM CHLORIDE 0.9% 250 ML IV SCH (21:40)
[2019-02-20] MEDS: METOPROLOL SUCCINATE XL 50 MG TABLET PO SCH (21:41)
[2019-02-21] MEDS: ALBUTEROL 0.63 MG/3 ML NEB RESP TX SCH ×5 (00:21→14:55)
[2019-02-21 05:34] LABS: Basophils # 0.1 10*3/uL (0.0-0.2); Basophils % 0.6 % (0.0-0.8); Eosinophils # 0.3 10*3/uL (0.0-0.87); Eosinophils % 2.5 % (0.00-10.9); Hematocrit 31.4 VOL% (42.0-52.0); Hemoglobin 9.2 GM/DL (14.0-18.0); Immature Granulocytes % 0.8 %; Lymphocytes # 1.1 10*3/uL (1.4-4.0); Lymphocytes % 8.2 % (21.2-54.2); Mean Corpuscular HGB Conc 29.3 GM/DL (32-36); Mean Platelet Volume 10.2 FL (9.6-12.0); Monocytes % 9.9 % (1.7-12.7); Platelet Count 266 T/CUMM (130-400); Red Blood Count 3.14 MC/CUMM (3.8-5.5); Red Cell Distribution Width 18.3 % (9.3-17.3); White Blood Count 13.3 T/CUMM (4-12)
[2019-02-21 05:47] LABS: Calcium 8.4 MG/DL (8.5-10.1); Osmolality,Calculated 296.5 MOS/KG (273-304)
[2019-02-21 05:52] LABS: Albumin 2.8 G/DL (3.4-5.0); Bilirubin,Total 1.2 MG/DL (0.2-1.0); Calcium 8.3 MG/DL (8.5-10.1); Osmolality,Calculated 300.3 MOS/KG (273-304)
[2019-02-21] MEDS: HEPARIN 5,000 UNIT/1 ML VIAL SUBCUT SCH ×2 (06:10→15:13)
[2019-02-21] MEDS ORDERED: metOLazone 5 MG TABLET PO SCH (07:30)
[2019-02-21] MEDS ORDERED: LEVOFLOXACIN INJ 500 MG in PREMIX 1 EACH IV SCH (08:00)
[2019-02-21] MEDS: ISOSORBIDE DINITRATE 10 MG TABLET PO SCH ×2 (08:45→15:13)
[2019-02-21] MEDS: SPIRONOLACTONE 25 MG TABLET PO SCH (08:45)
[2019-02-21] MEDS: FEBUXOSTAT 80 MG TABLET PO SCH (08:45)
[2019-02-21] MEDS: ASPIRIN EC 81 MG TABLET PO SCH (08:46)
[2019-02-21] MEDS: PANTOPRAZOLE 40 MG TABLET PO SCH (08:46)
[2019-02-21] MEDS: ATORVASTATIN 10 MG TABLET PO SCH (08:46)
[2019-02-21] MEDS: FERROUS SULFATE 325 MG TABLET PO SCH (08:46)
[2019-02-21] MEDS: DOCUSATE SODIUM 100 MG CAPSULE PO SCH (08:46)
[2019-02-21] MEDS: FUROSEMIDE 40 MG/4 ML VIAL IV SCH ×2 (08:47→15:13)
[2019-02-21] MEDS ORDERED: SPIRONOLACTONE 25 MG TABLET PO ONE (11:09)
[2019-02-21 18:05] VITALS: BP 110/70
[2019-02-22] MEDS ORDERED: SPIRONOLACTONE 25 MG TABLET PO SCH (09:00)
== END 2019-02-21 18:20 | disposition swing bed (61) | DRG 291 ==
LOC: N.ED 14:48 → N.EDINP 14:48 → N.2W 18:10 → N.5E 18:35
PROVIDERS: ADMIT Internal Medicine; ATTEND Internal Medicine

== ENCOUNTER 2019-04-11 12:34 | Inpatient (IN) ==
[~2019-04-11 12:34] MED LIST: ACETAMINOPHEN 325 MG TABLET PO PRN; ALBUTEROL/IPRATROPIUM 3 ML NEB RESP TX PRN; BISACODYL 5 MG TABLET PO PRN
[2019-04-11] MEDS ORDERED: INFLUENZA VIRUS VACCINE 0.5 ML SYRINGE IM ONE (15:23)
[2019-04-11] MEDS: PANTOPRAZOLE 40 MG TABLET PO SCH ×2 (15:37→16:20)
[2019-04-11] MEDS ORDERED: MAGNESIUM SULF RIDER 4 GM in PREMIX 1 EACH IV PRN (19:00)
[2019-04-11] MEDS ORDERED: MAGNESIUM SULF RIDER 2 GM in PREMIX 1 EACH IV PRN (19:00)
[2019-04-11] MEDS: ATORVASTATIN 10 MG TABLET PO SCH (21:59)
[2019-04-11] MEDS: METOPROLOL TARTRATE 25 MG TABLET PO SCH (21:59)
[2019-04-12] MEDS ORDERED: FUROSEMIDE 80 MG TABLET PO SCH (09:00)
[2019-04-12] MEDS: FUROSEMIDE 80 MG TABLET PO SCH ×2 (09:39→17:15)
[2019-04-12] MEDS: METOPROLOL TARTRATE 25 MG TABLET PO SCH ×2 (09:40→21:23)
[2019-04-12] MEDS: PANTOPRAZOLE 40 MG TABLET PO SCH ×2 (09:40)
[2019-04-12] MEDS: POTASSIUM CHLORIDE 20 MEQ TABLET PO PRN ×2 (17:13→19:11)
[2019-04-12] MEDS ORDERED: FUROSEMIDE 40 MG/4 ML VIAL IV STA (18:42)
[2019-04-12] MEDS ORDERED: POTASSIUM CHLORIDE 20 MEQ/15 ML UDCUP PO ONE (18:43)
[2019-04-12 19:40] LABS: Calcium 8.1 MG/DL (8.5-10.1); Osmolality,Calculated 304.5 MOS/KG (273-304)
[2019-04-12] MEDS: ATORVASTATIN 10 MG TABLET PO SCH (21:23)
[2019-04-13] MEDS: POTASSIUM CHLORIDE 20 MEQ TABLET PO PRN ×3 (02:00→10:45)
[2019-04-13 05:47] LABS: Basophils # 0.1 10*3/uL (0.0-0.2); Basophils % 0.9 % (0.0-0.8); Eosinophils # 0.3 10*3/uL (0.0-0.87); Eosinophils % 2.5 % (0.00-10.9); Hematocrit 30.1 VOL% (42.0-52.0); Hemoglobin 8.7 GM/DL (14.0-18.0); Immature Granulocytes % 0.6 %; Immature Granulocytes Absolute 0.07 #; Lymphocytes # 0.9 10*3/uL (1.4-4.0); Lymphocytes % 8.1 % (21.2-54.2); Mean Corpuscular HGB Conc 28.9 GM/DL (32-36); Mean Corpuscular Volume 104.5 FL (87-102); Mean Platelet Volume 10.3 FL (9.6-12.0); Monocytes % 12.3 % (1.7-12.7); Neutrophils % 75.6 % (38.7-73.9); Platelet Count 248 T/CUMM (130-400); Red Blood Count 2.88 MC/CUMM (3.8-5.5); Red Cell Distribution Width 22.6 % (9.3-17.3); White Blood Count 10.9 T/CUMM (4-12)
[2019-04-13 06:26] LABS: Calcium 8.4 MG/DL (8.5-10.1); Osmolality,Calculated 297.8 MOS/KG (273-304)
[2019-04-13] MEDS: METOPROLOL TARTRATE 25 MG TABLET PO SCH ×2 (09:18→22:10)
[2019-04-13] MEDS: PANTOPRAZOLE 40 MG TABLET PO SCH (09:18)
[2019-04-13 12:50] LABS: Platelet Estimate Normal
[2019-04-13 13:06] LABS: Macrocytosis 1+
[2019-04-13] MEDS: FUROSEMIDE 40 MG/4 ML VIAL IV SCH (16:31)
[2019-04-13] MEDS: ATORVASTATIN 10 MG TABLET PO SCH (22:10)
[2019-04-14] MEDS ORDERED: ZALEPLON 5 MG CAPSULE PO ONE (00:28)
[2019-04-14 05:56] LABS: Calcium 8.5 MG/DL (8.5-10.1)
[2019-04-14] MEDS: FUROSEMIDE 40 MG/4 ML VIAL IV SCH ×2 (08:56→17:07)
[2019-04-14] MEDS: PANTOPRAZOLE 40 MG TABLET PO SCH (08:56)
[2019-04-14] MEDS: METOPROLOL TARTRATE 25 MG TABLET PO SCH ×2 (09:05→21:18)
[2019-04-14] MEDS: ATORVASTATIN 10 MG TABLET PO SCH (21:18)
[2019-04-14] MEDS: DOCUSATE SODIUM 100 MG CAPSULE PO SCH (21:18)
[2019-04-15 05:24] LABS: Basophils # 0.1 10*3/uL (0.0-0.2); Basophils % 0.8 % (0.0-0.8); Eosinophils # 0.2 10*3/uL (0.0-0.87); Eosinophils % 2.1 % (0.00-10.9); Hematocrit 29.2 VOL% (42.0-52.0); Hemoglobin 8.5 GM/DL (14.0-18.0); Immature Granulocytes % 1.2 %; Immature Granulocytes Absolute 0.14 #; Lymphocytes # 1.1 10*3/uL (1.4-4.0); Lymphocytes % 9.5 % (21.2-54.2); Mean Corpuscular HGB Conc 29.1 GM/DL (32-36); Mean Corpuscular Volume 102.5 FL (87-102); Mean Platelet Volume 10.6 FL (9.6-12.0); Monocytes % 8.9 % (1.7-12.7); Neutrophils % 77.5 % (38.7-73.9); Platelet Count 277 T/CUMM (130-400); Red Blood Count 2.85 MC/CUMM (3.8-5.5); Red Cell Distribution Width 21.9 % (9.3-17.3); White Blood Count 11.3 T/CUMM (4-12)
[2019-04-15 05:30] LABS: INR 1.1; PT Patient Result 11.4 SECS (9.6-12.2)
[2019-04-15 05:57] LABS: Albumin 2.7 G/DL (3.4-5.0); Bilirubin,Total 0.6 MG/DL (0.2-1.0); Calcium 8.5 MG/DL (8.5-10.1); Osmolality,Calculated 289.1 MOS/KG (273-304); Total Protein 5.7 G/DL (6.4-8.3)
[2019-04-15] MEDS ORDERED: cefOXitin 2,000 MG in SYRINGE 1 EACH IV ONE (06:00)
[2019-04-15] MEDS ORDERED: LIDOCAINE 2% 5 ML VIAL ONE (08:04)
[2019-04-15] MEDS ORDERED: HEPARIN/NACL 0.9% 2 UNITS/ML 500 ML IV ONE (08:04)
[2019-04-15] MEDS: FUROSEMIDE 40 MG/4 ML VIAL IV SCH ×2 (08:16→18:24)
[2019-04-15] MEDS ORDERED: EPINEPHrine 1 MG/ML VIAL ONE (08:16)
[2019-04-15] MEDS ORDERED: BUPIVACAINE MPF 0.25% 30 ML VIAL ONE ×2 (08:17→12:38)
[2019-04-15] MEDS ORDERED: DEXAMETHASONE 4 MG/1 ML VIAL ONE ×2 (08:17→12:32)
[2019-04-15] MEDS ORDERED: LIDOCAINE 1% 5 ML VIAL ONE ×2 (08:17→12:32)
[2019-04-15] MEDS ORDERED: NON-FORMULARY MEDICATION (Omeprazole 40 MG) PO SCH (09:00)
[2019-04-15] MEDS: METOPROLOL TARTRATE 25 MG TABLET PO SCH ×2 (09:40→20:44)
[2019-04-15] MEDS: PANTOPRAZOLE 40 MG TABLET PO SCH (09:40)
[2019-04-15] MEDS: OMEGA 3 ACID ETHYL ESTERS 1 GM CAPSULE PO SCH (09:40)
[2019-04-15] MEDS: allopurinoL 300 MG TABLET PO SCH (09:42)
[2019-04-15] MEDS ORDERED: ROPIVACAINE 0.5% 30 ML VIAL ONE (12:32)
[2019-04-15] MEDS ORDERED: LIDOCAINE 1%/EPI INJ 20 ML VIAL ONE (12:38)
[2019-04-15 14:31] LABS: ABG Base Excess 7.2 MMOL/L (-2.5-2.5); ABG HCO3 31.1 MMOL/L (20-26); ABG Oxygen Saturation 98.9 % (95-100); ABG PH 7.444 (7.35-7.45); ABG TCO2 29.9 MMOL/L (23-27); Glucose Heart Surgery 125 MG/DL (74-106); Hematocrit Heart Surgery 25.3 PERCENT (42-52); Hemoglobin Heart Surgery 8.1 G/DL (14.0-18.0); Potassium Heart/CVR 3.3 MMOL/L (3.5-5.1)
[2019-04-15] MEDS ORDERED: INDIGO CARMINE 5 ML AMP ONE (14:33)
[2019-04-15 14:38] LABS: Apearance,Urine CLEAR (Clear); Bacteria,Urine Occasional /HPF (Few); Bilirubin,Urine Negative (Negative); Blood, Urine Negative (Negative); Glucose,Urine (UA) Negative (Negative); Hyaline Casts,Urine 1 /LPF (0-3); Ketones,Urine Negative (Negative); Nitrite,Urine Negative (Negative); Protein,Urine Negative; RBC,Urine <1 /HPF (0-4); Squamous Epithelial Cell,Urine Occasional /HPF (0-10); Urine Color Yellow (Yellow); Urine Urobilinogen < 2.0 EU/DL (0.2-1.0); WBC,Urine 1 /HPF (0-6)
[2019-04-15] MEDS ORDERED: INDOCYANINE GREEN 25 MG VIAL IV ONE (14:58)
[2019-04-15] MEDS ORDERED: ROCURONIUM 100 MG/10 ML VIAL IV ONE (16:43)
[2019-04-15] MEDS ORDERED: ETOMIDATE 40 MG/20 ML VIAL IV ONE (16:43)
[2019-04-15] MEDS ORDERED: CALCIUM CHLORIDE 1,000 MG/10 ML VIAL IV ONE (16:43)
[2019-04-15] MEDS ORDERED: fentaNYL 100 MCG/2 ML VIAL ONE (16:43)
[2019-04-15] MEDS ORDERED: ePHEDrine 50 MG/ML AMP ONE (16:43)
[2019-04-15] MEDS ORDERED: SEVOFLURANE 1 UNIT/15 MINUTE INH ONE (16:43)
[2019-04-15] MEDS ORDERED: PHENYLEPHRINE 1 MG/10 ML SYRINGE IV ONE (16:43)
[2019-04-15 17:31] LABS: ABG Base Excess 5.9 MMOL/L (-2.5-2.5); ABG HCO3 29.8 MMOL/L (20-26); ABG Oxygen Saturation 99.8 % (95-100); ABG PCO2 42.9 MM HG (35-48); ABG PH 7.458 (7.35-7.45); ABG TCO2 28.1 MMOL/L (23-27)
[2019-04-15] MEDS ORDERED: HYDROmorphone 2 MG/1 ML VIAL IV PRN (17:48)
[2019-04-15 19:43] LABS: Basophils # 0.1 10*3/uL (0.0-0.2); Basophils % 0.4 % (0.0-0.8); Eosinophils % 0.3 % (0.00-10.9); Immature Granulocytes % 0.4 %; Immature Granulocytes Absolute 0.05 #; Lymphocytes # 0.6 10*3/uL (1.4-4.0); Lymphocytes % 5.7 % (21.2-54.2); Mean Corpuscular HGB Conc 28.7 GM/DL (32-36); Mean Platelet Volume 10.1 FL (9.6-12.0); Monocytes % 8.5 % (1.7-12.7); Neutrophils % 84.7 % (38.7-73.9); Platelet Count 269 T/CUMM (130-400); Red Blood Count 3.02 MC/CUMM (3.8-5.5); Red Cell Distribution Width 22.4 % (9.3-17.3); White Blood Count 11.2 T/CUMM (4-12)
[2019-04-15 19:52] LABS: Hematocrit 31.4 VOL% (42.0-52.0)
[2019-04-15 19:54] LABS: Calcium 9.3 MG/DL (8.5-10.1); Osmolality,Calculated 291.8 MOS/KG (273-304)
[2019-04-15] MEDS: DOCUSATE SODIUM 100 MG CAPSULE PO SCH (20:41)
[2019-04-15] MEDS: POTASSIUM CHLORIDE 20 MEQ/15 ML UDCUP PO PRN ×2 (20:41→22:30)
[2019-04-15] MEDS: ATORVASTATIN 10 MG TABLET PO SCH (20:42)
[2019-04-15] MEDS: ONDANSETRON 4 MG/2 ML VIAL IV PRN (23:15)
[2019-04-16] MEDS: POTASSIUM CHLORIDE 20 MEQ/15 ML UDCUP PO PRN ×3 (00:12→17:11)
[2019-04-16] MEDS ORDERED: LACTATED RINGERS 500 ML IV ONE (01:40)
[2019-04-16 05:05] LABS: ABG Base Excess 6.5 MMOL/L (-2.5-2.5); ABG HCO3 30.4 MMOL/L (20-26); ABG PCO2 40.7 MM HG (35-48); ABG PH 7.483 (7.35-7.45); ABG TCO2 28.4 MMOL/L (23-27)
[2019-04-16 05:21] LABS: Basophils % 0.3 % (0.0-0.8); Eosinophils % 0.1 % (0.00-10.9); Hematocrit 27.2 VOL% (42.0-52.0); Immature Granulocytes % 0.6 %; Immature Granulocytes Absolute 0.08 #; Lymphocytes # 0.4 10*3/uL (1.4-4.0); Mean Corpuscular HGB Conc 29.4 GM/DL (32-36); Mean Corpuscular Volume 101.9 FL (87-102); Mean Platelet Volume 10.5 FL (9.6-12.0); Monocytes % 8.6 % (1.7-12.7); Neutrophils % 87.4 % (38.7-73.9); Platelet Count 265 T/CUMM (130-400); Red Blood Count 2.67 MC/CUMM (3.8-5.5); Red Cell Distribution Width 21.8 % (9.3-17.3); White Blood Count 13.3 T/CUMM (4-12)
[2019-04-16] MEDS ORDERED: NOREPINEPHRINE 8 MG in SODIUM CHLORIDE 0.9% 242 ML IV PRN (05:29)
[2019-04-16 05:42] LABS: Calcium 8.7 MG/DL (8.5-10.1); Osmolality,Calculated 298.4 MOS/KG (273-304)
[2019-04-16 06:05] LABS: Anisocytosis 1+; Eosinophils 1 % (0-10); Hypochromasia 1+; Lymphocytes 13 % (20-55); Macrocytosis 1+; Ovalocytes 1+; Platelet Estimate Adequate; Polychromasia 1+; Segmented Neutrophils 80 % (50-85); Total Cells Counted 100
[2019-04-16] MEDS ORDERED: SODIUM CHLORIDE 0.9% 1,000 ML IV PRN (06:45)
[2019-04-16] MEDS: LACTATED RINGERS 1,000 ML IV SCH ×2 (07:14→15:27)
[2019-04-16] MEDS ORDERED: FUROSEMIDE 20 MG/2 ML VIAL ONE (08:22)
[2019-04-16] MEDS: PANTOPRAZOLE 40 MG TABLET PO SCH (10:28)
[2019-04-16] MEDS: allopurinoL 300 MG TABLET PO SCH (10:28)
[2019-04-16] MEDS: FUROSEMIDE 40 MG/4 ML VIAL IV SCH ×2 (10:28→15:28)
[2019-04-16] MEDS: OMEGA 3 ACID ETHYL ESTERS 1 GM CAPSULE PO SCH (10:29)
[2019-04-16 12:38] LABS: Hematocrit 32.8 VOL% (42.0-52.0)
[2019-04-16 12:39] LABS: Hemoglobin 9.7 GM/DL (14.0-18.0)
[2019-04-16] MEDS: DOCUSATE SODIUM 100 MG CAPSULE PO SCH (21:02)
[2019-04-16] MEDS: ATORVASTATIN 10 MG TABLET PO SCH (21:02)
[2019-04-17] MEDS: LACTATED RINGERS 1,000 ML IV SCH ×3 (00:25→10:47)
[2019-04-17 06:25] LABS: Basophils # 0.1 10*3/uL (0.0-0.2); Basophils % 0.6 % (0.0-0.8); Eosinophils # 0.2 10*3/uL (0.0-0.87); Eosinophils % 1.9 % (0.00-10.9); Hematocrit 30.7 VOL% (42.0-52.0); Immature Granulocytes % 0.5 %; Immature Granulocytes Absolute 0.05 #; Lymphocytes # 0.7 10*3/uL (1.4-4.0); Lymphocytes % 6.5 % (21.2-54.2); Mean Corpuscular HGB Conc 29.3 GM/DL (32-36); Mean Platelet Volume 10.2 FL (9.6-12.0); Monocytes % 13.9 % (1.7-12.7); Neutrophils % 76.6 % (38.7-73.9); Platelet Count 272 T/CUMM (130-400); Red Blood Count 2.98 MC/CUMM (3.8-5.5); Red Cell Distribution Width 21.6 % (9.3-17.3); White Blood Count 10.5 T/CUMM (4-12)
[2019-04-17 06:45] LABS: Calcium 8.4 MG/DL (8.5-10.1); Osmolality,Calculated 295.5 MOS/KG (273-304)
[2019-04-17] MEDS ORDERED: POTASSIUM CHLORIDE 20 MEQ/15 ML UDCUP PER TUBE PRN (07:37)
[2019-04-17] MEDS ORDERED: METOPROLOL TARTRATE 50 MG TABLET ONE (08:18)
[2019-04-17] MEDS: FUROSEMIDE 40 MG/4 ML VIAL IV SCH ×2 (08:57→17:56)
[2019-04-17] MEDS: allopurinoL 300 MG TABLET PO SCH (08:58)
[2019-04-17] MEDS: PANTOPRAZOLE 40 MG TABLET PO SCH (08:58)
[2019-04-17] MEDS: OMEGA 3 ACID ETHYL ESTERS 1 GM CAPSULE PO SCH (08:58)
[2019-04-17] MEDS: METOPROLOL TARTRATE 25 MG TABLET PO SCH ×2 (08:59→21:45)
[2019-04-17] MEDS: POTASSIUM CHLORIDE 20 MEQ/15 ML UDCUP PO PRN ×2 (09:01→13:03)
[2019-04-17] MEDS: ENOXAPARIN 40 MG/0.4 ML SYRINGE SUBCUT SCH (13:57)
[2019-04-17] MEDS: ONDANSETRON 4 MG/2 ML VIAL IV PRN (20:24)
[2019-04-17] MEDS: DOCUSATE SODIUM 100 MG CAPSULE PO SCH (21:45)
[2019-04-17] MEDS: ATORVASTATIN 10 MG TABLET PO SCH (21:45)
[2019-04-18 06:21] LABS: Calcium 7.9 MG/DL (8.5-10.1); Osmolality,Calculated 288.1 MOS/KG (273-304)
[2019-04-18 06:30] LABS: Basophils # 0.1 10*3/uL (0.0-0.2); Basophils % 0.7 % (0.0-0.8); Eosinophils # 0.3 10*3/uL (0.0-0.87); Immature Granulocytes % 0.5 %; Immature Granulocytes Absolute 0.06 #; Lymphocytes # 0.7 10*3/uL (1.4-4.0); Lymphocytes % 6.3 % (21.2-54.2); Mean Corpuscular HGB Conc 28.8 GM/DL (32-36); Mean Corpuscular Volume 101.9 FL (87-102); Mean Platelet Volume 10.1 FL (9.6-12.0); Neutrophils % 78.5 % (38.7-73.9); Platelet Count 292 T/CUMM (130-400); Red Cell Distribution Width 20.5 % (9.3-17.3); White Blood Count 11.2 T/CUMM (4-12)
[2019-04-18 06:31] LABS: Hematocrit 32.4 VOL% (42.0-52.0)
[2019-04-18 06:32] LABS: Hemoglobin 9.4 GM/DL (14.0-18.0)
[2019-04-18] MEDS: OMEGA 3 ACID ETHYL ESTERS 1 GM CAPSULE PO SCH (09:14)
[2019-04-18] MEDS: FUROSEMIDE 40 MG/4 ML VIAL IV SCH (09:14)
[2019-04-18] MEDS: PANTOPRAZOLE 40 MG TABLET PO SCH (09:15)
[2019-04-18] MEDS: METOPROLOL TARTRATE 25 MG TABLET PO SCH ×2 (09:15→21:14)
[2019-04-18] MEDS: allopurinoL 300 MG TABLET PO SCH (09:15)
[2019-04-18 10:11] LABS: Calcium 8.1 MG/DL (8.5-10.1); Osmolality,Calculated 288.1 MOS/KG (273-304)
[2019-04-18 10:28] LABS: Basophils # 0.1 10*3/uL (0.0-0.2); Basophils % 0.8 % (0.0-0.8); Eosinophils # 0.3 10*3/uL (0.0-0.87); Hematocrit 33.6 VOL% (42.0-52.0); Hemoglobin 9.7 GM/DL (14.0-18.0); Immature Granulocytes % 0.7 %; Immature Granulocytes Absolute 0.07 #; Lymphocytes # 0.8 10*3/uL (1.4-4.0); Lymphocytes % 7.4 % (21.2-54.2); Mean Corpuscular HGB Conc 28.9 GM/DL (32-36); Mean Corpuscular Volume 103.4 FL (87-102); Monocytes % 11.8 % (1.7-12.7); Neutrophils % 76.3 % (38.7-73.9); Platelet Count 311 T/CUMM (130-400); Red Blood Count 3.25 MC/CUMM (3.8-5.5); Red Cell Distribution Width 20.2 % (9.3-17.3); White Blood Count 10.6 T/CUMM (4-12)
[2019-04-18 10:30] LABS: Hypochromasia 1+; Ovalocytes Slight; Platelet Estimate Adequate
[2019-04-18] MEDS: ENOXAPARIN 40 MG/0.4 ML SYRINGE SUBCUT SCH (13:42)
[2019-04-18] MEDS: FUROSEMIDE 80 MG TABLET PO SCH (16:16)
[2019-04-18] MEDS: ATORVASTATIN 10 MG TABLET PO SCH (21:14)
[2019-04-18] MEDS: DOCUSATE SODIUM 100 MG CAPSULE PO SCH (21:14)
[2019-04-19 05:16] LABS: Basophils # 0.1 10*3/uL (0.0-0.2); Eosinophils # 0.4 10*3/uL (0.0-0.87); Eosinophils % 4.3 % (0.00-10.9); Hematocrit 30.3 VOL% (42.0-52.0); Hemoglobin 8.8 GM/DL (14.0-18.0); Immature Granulocytes % 0.6 %; Immature Granulocytes Absolute 0.06 #; Lymphocytes # 0.8 10*3/uL (1.4-4.0); Mean Platelet Volume 10.1 FL (9.6-12.0); Monocytes % 12.4 % (1.7-12.7); Neutrophils % 73.7 % (38.7-73.9); Platelet Count 324 T/CUMM (130-400); Red Blood Count 2.97 MC/CUMM (3.8-5.5); Red Cell Distribution Width 19.6 % (9.3-17.3); White Blood Count 10.3 T/CUMM (4-12)
[2019-04-19 05:24] LABS: Osmolality,Calculated 285.4 MOS/KG (273-304)
[2019-04-19] MEDS: METOPROLOL TARTRATE 25 MG TABLET PO SCH ×2 (09:26→20:42)
[2019-04-19] MEDS: PANTOPRAZOLE 40 MG TABLET PO SCH (09:26)
[2019-04-19] MEDS: OMEGA 3 ACID ETHYL ESTERS 1 GM CAPSULE PO SCH (09:26)
[2019-04-19] MEDS: allopurinoL 300 MG TABLET PO SCH (09:26)
[2019-04-19] MEDS: HEPARIN 5,000 UNIT/1 ML VIAL SUBCUT SCH ×2 (09:26→16:37)
[2019-04-19] MEDS: FUROSEMIDE 80 MG TABLET PO SCH ×2 (09:26→16:37)
[2019-04-19] MEDS: ATORVASTATIN 10 MG TABLET PO SCH (20:42)
[2019-04-19] MEDS: DOCUSATE SODIUM 100 MG CAPSULE PO SCH (20:42)
[2019-04-20] MEDS: HEPARIN 5,000 UNIT/1 ML VIAL SUBCUT SCH ×3 (01:13→16:49)
[2019-04-20 04:12] LABS: Osmolality,Calculated 290.1 MOS/KG (273-304)
[2019-04-20 05:00] LABS: Basophils # 0.1 10*3/uL (0.0-0.2); Basophils % 0.8 % (0.0-0.8); Eosinophils # 0.4 10*3/uL (0.0-0.87); Eosinophils % 3.9 % (0.00-10.9); Hematocrit 29.8 VOL% (42.0-52.0); Immature Granulocytes % 0.7 %; Immature Granulocytes Absolute 0.07 #; Lymphocytes # 0.9 10*3/uL (1.4-4.0); Lymphocytes % 8.8 % (21.2-54.2); Mean Corpuscular HGB Conc 28.9 GM/DL (32-36); Mean Corpuscular Volume 101.4 FL (87-102); Mean Platelet Volume 10.5 FL (9.6-12.0); Monocytes % 13.7 % (1.7-12.7); Neutrophils % 72.1 % (38.7-73.9); Platelet Count 329 T/CUMM (130-400); Red Blood Count 2.94 MC/CUMM (3.8-5.5); Red Cell Distribution Width 19.6 % (9.3-17.3); White Blood Count 10.3 T/CUMM (4-12)
[2019-04-20 05:01] LABS: Hemoglobin 8.6 GM/DL (14.0-18.0)
[2019-04-20 05:17] LABS: Hypochromasia 1+; Ovalocytes Slight; Platelet Estimate Adequate
[2019-04-20] MEDS: OMEGA 3 ACID ETHYL ESTERS 1 GM CAPSULE PO SCH (08:58)
[2019-04-20] MEDS: PANTOPRAZOLE 40 MG TABLET PO SCH (08:58)
[2019-04-20] MEDS: METOPROLOL TARTRATE 25 MG TABLET PO SCH ×2 (08:58→21:09)
[2019-04-20] MEDS: FUROSEMIDE 80 MG TABLET PO SCH ×2 (08:58→16:49)
[2019-04-20] MEDS: allopurinoL 300 MG TABLET PO SCH (08:58)
[2019-04-20] MEDS: DESITIN 4OZ/NYSTATIN 15 GRAM MIXTURE PASTE TOP SCH ×2 (10:20→21:09)
[2019-04-20 14:02] LABS: Calcium 8.1 MG/DL (8.5-10.1); Osmolality,Calculated 292.1 MOS/KG (273-304)
[2019-04-20] MEDS: ATORVASTATIN 10 MG TABLET PO SCH (21:09)
[2019-04-20] MEDS: DOCUSATE SODIUM 100 MG CAPSULE PO SCH (21:09)
[2019-04-21] MEDS: HEPARIN 5,000 UNIT/1 ML VIAL SUBCUT SCH ×2 (01:56→08:18)
[2019-04-21 04:33] LABS: Basophils # 0.1 10*3/uL (0.0-0.2); Basophils % 0.7 % (0.0-0.8); Eosinophils # 0.4 10*3/uL (0.0-0.87); Eosinophils % 3.8 % (0.00-10.9); Hematocrit 27.9 VOL% (42.0-52.0); Immature Granulocytes % 0.9 %; Immature Granulocytes Absolute 0.09 #; Lymphocytes # 0.7 10*3/uL (1.4-4.0); Lymphocytes % 6.6 % (21.2-54.2); Mean Corpuscular HGB Conc 28.7 GM/DL (32-36); Mean Corpuscular Volume 101.8 FL (87-102); Mean Platelet Volume 10.1 FL (9.6-12.0); Monocytes % 12.3 % (1.7-12.7); NRBC # 0.02 10*3/uL; Neutrophils % 75.7 % (38.7-73.9); Platelet Count 304 T/CUMM (130-400); Red Blood Count 2.74 MC/CUMM (3.8-5.5); Red Cell Distribution Width 19.4 % (9.3-17.3); White Blood Count 10.4 T/CUMM (4-12)
[2019-04-21 04:56] LABS: Hypochromasia 1+; Platelet Estimate Adequate
[2019-04-21 04:57] LABS: Ovalocytes Slight
[2019-04-21] MEDS: FUROSEMIDE 80 MG TABLET PO SCH (08:15)
[2019-04-21 08:16] VITALS: BP 94/66
[2019-04-21] MEDS: allopurinoL 300 MG TABLET PO SCH (08:17)
[2019-04-21] MEDS: PANTOPRAZOLE 40 MG TABLET PO SCH (08:17)
[2019-04-21] MEDS: METOPROLOL TARTRATE 25 MG TABLET PO SCH (08:17)
[2019-04-21] MEDS: OMEGA 3 ACID ETHYL ESTERS 1 GM CAPSULE PO SCH (09:47)
[2019-04-21] MEDS: DESITIN 4OZ/NYSTATIN 15 GRAM MIXTURE PASTE TOP SCH (09:47)
== END 2019-04-21 11:20 | DRG 329 ==
LOC: N.3E 15:08 → N.ICU 04-15 16:41 → N.TELES 04-17 17:19 → N.4E 04-19 11:23
PROVIDERS: ADMIT Surgery; ATTEND Surgery